=== PATIENT | female | born 1985 | race Caucasian/White ===

== ENCOUNTER 2019-02-19 20:52 | Emergency (ER) | payer BC, OTHER ==
[2019-02-19 21:21] VITALS: BP 114/66; PULSE 86; TEMP 98; BMI 27.6
--- NOTE | 2019-02-19 21:45 | PDOC ---
History of Present Illness - General Chief Complaint: Vaginal Bleeding Stated Complaint: 6 W PREG/VAG BLEEDING Time Seen by Provider: 02/19/19 21:41 - History of Present Illness Initial Comments: 02/19/19 21:42 The patient is a 33 year old (1 elective , 2 spontaneous abortions ) @ a self reported 6 weeks gestation who presents to our ED c/o acute onset of vaginal bleeding and abdominal cramping this afternoon around 3 p.m. Patient states she was sitting outside at her son's baseball game when she went to the bathroom and noticed bright red blood when she wiped. She states she continued to bleed for the next 3-4 hours with intermittent B/L LQ abdominal cramping. 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 Denies fevers, tolerating PO intake. H/o two previous SAB with IVF pregnancies @ 6 and 11 weeks respectively. NKDA Surgical: B/L breast fibroadenoma resection Past History - Past Medical History Allergies/Adverse Reactions: Allergies Allergy/AdvReac Type Severity Reaction Status Date / Time No Known Allergies Allergy Verified 02/19/19 21:17 COPD: No Disorders: Yes (2 misscarriages) - Suicide/Smoking/Psychosocial Hx Smoking History: Never smoked Hx Alcohol Use: No Drug/Substance Use Hx: No Review of Systems - Review of Systems Constitutional: No: Chills, Fever HEENTM: No: Blurred Vision, Recent change in vision Respiratory: No: Cough, Shortness of Breath Cardiac (ROS): No: Chest Pain, Lightheadedness, Palpitations, Syncope ABD/GI: Yes: Abdominal cramping. No: Constipated, Diarrhea, Nausea, Vomiting *Physical Exam - Vital Signs Last Vital Signs Temp Pulse Resp BP Pulse Ox 98 F 86 20 114/66 99 02/19/19 21:17 02/19/19 21:17 02/19/19 21:17 02/19/19 21:17 02/19/19 21:17 - Physical Exam General Appearance: Yes: Nourished, Appropriately Dressed HEENT: positive: Normal Voice, Hearing Grossly Normal Neck: positive: Trachea midline, Supple Respiratory/Chest: positive: Lungs Clear, Normal Breath Sounds Cardiovascular: positive: S1, S2 Female Pelvic Exam: positive: other (dark red blood in vaginal vault, open cervical os w/out any visible tissue) Gastrointestinal/Abdominal: positive: Normal Bowel Sounds, Soft. negative: Distended, Guarding, Rebound, Tenderness Extremity: positive: Normal Capillary Refill, Normal Inspection Integumentary: positive: Normal Color, Dry, Warm Neurologic: positive: Fully Oriented, Alert ED Treatment Course - LABORATORY CBC & Chemistry Diagram: 02/19/19 23:02 02/19/19 23:02 Medical Decision Making - Medical Decision Making 02/19/19 22:04 33 year old female at self reported 6 weeks gestation w/vaginal bleeding, abdominal cramping. IVF . Frontal diagnosis: Threatened AB, Spontaneous AB also consider ectopic PLAN: 1. TVUS 2. B-HCG, CBC 3. UA 02/19/19 22:50 TVUS shows IUP c/w 6 weeks 1 day, FHR 117. Low FHR + subchorionic bleed suggestive of possible Threatened AB UA leukocyte esterase negative, nitrite negative Patient states she's Type A+ and has follow-up scheduled with her [facility] doctor this . Patient advised to f/u with OB in the next 48 hours. 02/20/19 01:36 Patient discharged home with return precautions and OB-Director Of Blood referral. Clinical Impression: Subchorionic Hemorrhage with Threatened AB *DC/Admit/Observation/Transfer Diagnosis at time of Disposition: Vaginal bleeding during - Discharge Dispostion Disposition: HOME Condition at time of disposition: Improved - Referrals Referrals: ON STAFF,NOT [Primary Care Provider] - Kyrie Grove MD [Staff Physician] - - Patient Instructions Printed Discharge Instructions: Threatened Additional Instructions: An ultrasound showed a , with a subchorionic hematoma. At this time, you are safe for discharge home, however you must be evaluated by an stacker and sorter operator within the next 3 days. We have provided a referral or you can call your insurance company for a list of doctors. Your care is not complete until you are evaluated by an stacker and sorter operator. Please refrain from any sexual activity or inserting anything into your vagina. Drink plenty of water. You can take Tylenol (up to 4000 mg daily) for your pain. Return to the Emergency Department for any new/worsening/concerning symptoms. - Post Discharge Activity
[2019-02-19] MEDS ORDERED: SODIUM CHLORIDE 0.9% 1000 ML INFUS.BAG IV ONE (21:59)
--- NOTE | 2019-02-19 22:33 | PDOC ---
Documentation entered by Alta Hood SCRIBE, acting as scribe for Jacqui Jeffries MD. Jacqui Jeffries MD: This documentation has been prepared by the atuleErwin Lincy, SCRIBE, under my direction and personally reviewed by me in its entirety. I confirm that the documentation accurately reflects all work, treatment, procedures, and medical decision making performed by me. Attending Attestation - Resident Resident Name: AlanDomitila - ED Attending Attestation I have performed the following: I have examined & evaluated the patient, The case was reviewed & discussed with the resident, I agree w/resident's findings & plan, Exceptions are as noted - HPI HPI: 02/19/19 22:03 The patient is a 33-year-old female, currently 6 weeks , intrauterine confirmed by ultrasounds, presents to the emergency department with vaginal bleeding and abdominal discomfort. The patient reports around 3:00 pm today, she was at her sons baseball game, at where she went to the bathroom and noticed red blood while wiping. The patient reports since the presentation, shes been having vaginal bleeding, associated with intermittent lower abdominal pain, thats crampy in quality. Denies fever, chills, vaginal itching , dysuria, frequency or urgency to urinate. The patient reports she had a documented ultrasound yesterday (02/18), which showed heart rate and Intrauterine . Allergies: NKDA. - Physicial Exam PE: 02/19/19 22:32 awake alert lungs clear bilat . heart rrr no mrg abd soft nt nd ext wwp no edema. nuero alert oriented x 3. - Medical Decision Making 02/19/19 22:32 plan r/o heterotopic, threatened vs. incomplete ab. plan labs hcg tvus ivf, type and screen ua. 02/20/19 00:23 pt us with iup 6 week 1 day, small subchorionic hemorrhage. blood type. 02/20/19 00:24 will d c home given fu with dr khanna
[2019-02-19 23:11] LABS: BASO % 0.6 % (0-2.0); EOS % 3.7 % (0-4.5); HEMATOCRIT 37.9 % (32.4-45.2); HEMOGLOBIN 12.5 GM/dL (10.7-15.3); LYMPH % 25.2 % (8-40); MCH 29.9 pg (25.7-33.7); MEAN CELL VOLUME 90.7 fl (80-96); MEAN PLT VOLUME 8.6 fl (7.5-11.1); MONO % 6.4 % (3.8-10.2); NEUT % 64.1 % (42.8-82.8); PLATELET COUNT 327 K/MM3 (134-434); RBC 4.18 M/mm3 (3.60-5.2); RDW 12.7 % (11.6-15.6); WHITE BLOOD COUNT 11.8 K/mm3 (4.0-10.0)
[2019-02-19 23:31] LABS: EPI CELLS 14.2 /HPF (0-5/HPF); PH,URINE 5.5 (5.0-8.0); URINE APPEARANCE CLOUDY; URINE BACTERIA 1912.8 /hpf (NEGATIVE); URINE BILIRUBIN NEGATIVE (NEGATIVE); URINE CASTS 21 /lpf (0-8); URINE COLOR YELLOW; URINE GLUCOSE (UA) NEGATIVE (NEGATIVE); URINE KETONE TRACE (NEGATIVE); URINE LEUK ESTERASE TRACE (NEGATIVE); URINE NITRITE NEGATIVE (NEGATIVE); URINE PROTEIN 1+ (NEGATIVE); URINE WBC 18 /hpf (0-5)
[2019-02-19 23:52] LABS: URINE RBC 50 /hpf (0-4)
[2019-02-19 23:57] LABS: ALBUMIN 3.6 g/dl (3.4-5.0); ALK PHOS 36 U/L (45-117); ANION GAP 5 MMOL/L (8-16); BILIRUBIN,TOTAL 0.2 mg/dL (0.2-1); BLOOD UREA NITROGEN 17 mg/dL (7-18); CALCIUM 9.1 mg/dL (8.5-10.1); CHLORIDE 105 mmol/L (98-107); CO2 26 mmol/L (21-32); GLUCOSE,RANDOM 81 mg/dL (74-106); POTASSIUM 3.9 mmol/L (3.5-5.1); SGOT/AST 14 U/L (15-37); SGPT/ALT 25 U/L (13-61); SODIUM 136 mmol/L (136-145); TOT PROT 7.9 g/dl (6.4-8.2)
== END 2019-02-20 00:55 | disposition home or self-care (01) ==
LOC: JER 20:52
DX: O26.891 Other specified pregnancy related conditions, first trimester (principal); O20.0 Threatened abortion; O20.8 Other hemorrhage in early pregnancy; Z3A.01 Less than 8 weeks gestation of pregnancy
CPT/HCPCS: 36415; 76817-TC; 80053; 81003; 84702; 85025; 86850; 86900; 86901; 99282-25; J7030